=== PATIENT | male | born 1975 | race Caucasian/White ===

== ENCOUNTER 2016-11-02 21:29 | Inpatient (IN) | payer OTHER ==
--- NOTE | ~2016-11-02 | DS ---
Unit #: [id number] #: [id number] Patient: MERLYN LARA [id number] [facility] [address] [place] [address] [id number] I MR#: [id number] NAME: MERLYN LARA. ROOM: P183 Age: 41 Sex: M Admission Date: 11/02/2016 : 1975 Discharge Date: 11/07/2016 Attending Physician: Tanmay Ferguson M.D. Primary Care Physician: Primary Care Physician No DISCHARGE SUMMARY IDENTIFYING DATA Mr. Lara is a 41-year-old single white male, who is known to us from previous encounter and was self-referred to the hospital. DISCHARGE DIAGNOSES Psychiatric: Opioid dependence, moderate and acute withdrawals; opioid-induced mood disorder. Medical: History of withdrawal seizures and hepatitis C. Stressors: Moderate psychosocial stressors. HISTORY OF PRESENT ILLNESS Please see initial psychiatric evaluation for details. PAST PSYCHIATRIC HISTORY Please see initial psychiatric evaluation for details. PAST MEDICAL HISTORY Please see initial psychiatric evaluation for details. HOSPITAL COURSE The patient was admitted to the adult chemical dependency unit at [facility] [place] and was oriented to the hospital environment. Routine p.r.n. medications were initiated and he was started on opioid detox protocol and was closely monitored. He was taking medications regularly and was tolerating them fairly well and was able to show a decent and therapeutic response and was willing to continue treatment on an outpatient basis. DISCHARGE MEDICATIONS None. DISCHARGE CONDITION Stable. PROGNOSIS Fair. Dictated by... Marcia Kelley/claudettel TD: 12/10/2016 23:22 JOB #: [id number] Unit #: [id number] #: [id number] Patient: MERLYN LARA DISCHARGE SUMMARY Page 1 of 1 X Tanmay Ferguson MD X DISCHARGE SUMMARY
--- NOTE | ~2016-11-02 | HP ---
Unit #: [id number] #: [id number] Patient: JUNIOR LARA [id number] [place] [address] [id number] MR#: [id number] NAME: JUNIOR LARA. ROOM: P183 Age: 41 Sex: M Admission Date: 11/02/2016 : 1975 Attending Physician: Tanmay Ferguson M.D. Admitting Physician: Tanmay Ferguson M.D. Primary Care Physician: Primary Care Physician No HISTORY AND PHYSICAL HISTORY OF PRESENT ILLNESS Junior is a 41 year old admitted to [facility] because of his continued drug use. He shoots heroin. PAST MEDICAL HISTORY 1. Long history of polysubstance abuse to include IV heroin. 2. Hepatitis C. 3. History of withdrawal seizures. PAST SURGICAL HISTORY Fractured right foot with ORIF. ALLERGIES No known drug allergies. SOCIAL HISTORY Smokes one pack per day. Drinks alcohol on occasion and admits to a long history of poly illicit substance abuse to include IV heroin and methamphetamine. REVIEW OF SYSTEMS CONSTITUTIONAL: No fever or chills. HEENT: Denies any sore throat, ear pain or runny nose. CARDIOVASCULAR: Denies chest pain, irregular heart rhythm or palpitations. CHEST: Denies shortness of breath or cough. No hemoptysis. GASTROINTESTINAL: Denies nausea, vomiting, diarrhea or chronic constipation. ENDOCRINE: Denies history of increased thirst or urination. No recent significant weight loss or gain. GENITOURINARY: Denies dysuria, frequency, or hematuria. SKIN: Denies any rashes. HEMATOLOGIC: Denies history of increased bleeding or bruising. MUSCULOSKELETAL: Denies any hot, swollen joints. No generalized muscle pain. NEUROLOGIC: Denies problems with vision or speech. No frequent, severe headaches. No numbness, tingling or weakness in any extremities. Denies loss of bladder or bowel control. CURRENT MEDICATIONS Detox protocol Unit #: [id number] #: [id number] Patient: JUNIOR LARA PHYSICAL EXAMINATION GENERAL: Alert, well-nourished, in no apparent distress. VITAL SIGNS: Blood pressure 100/66, heart rate 60, respirations 16, temperature 98.6. WEIGHT: 160 pounds. HEIGHT: 5'5". SKIN: Warm and dry without rash or lesion. HEENT: Normocephalic. TMs not viewed. Oral and nasal passages clear. Conjunctivae clear. Pupils equal, round and reactive to light and accommodation. Extraocular movements intact. NECK: Supple without lymphadenopathy or thyromegaly. HEART: Regular rate and rhythm without murmur. LUNGS: Clear. ABDOMEN: Soft, nontender. : Not done. EXTREMITIES: No evidence of cyanosis, clubbing or edema. Moves all extremities without focal deficit. NEUROLOGICAL: Grossly within normal limits. Cranial Nerves: II: Visual no are intact. III, IV AND : Extraocular movements are intact. Pupils are equal, round and reactive to light. V: Facial sensation is grossly normal. VII: Facial movements and expression are normal. VIII: Auditory acuity grossly intact. IX, X: Uvula is midline. Phonation is normal. XI: Patient shrugs shoulders and turns head normally. XII: Tongue protrudes in the midline. Sensory and Motor Function: Sensory and motor sensation is grossly normal. Motor: moves all extremities well. Coordination: Gait is normal. Deep Tendon Reflexes: Intact. IMPRESSION Psychiatric admission RECOMMENDATIONS PSYCHIATRIC: Per psychiatrist. MEDICAL: I see no contraindications to participating in facility's activities. MEDICAL PROGNOSIS Good. MEDICAL CONDITION Stable. Dictated by... Trudy Andujar PKarinAKarin-Darlin. for Marcia Brizuela/josé miguel TD: 11/04/2016 03:58 JOB #: [id number] Unit #: [id number] #: [id number] Patient: JUNIOR LARA HISTORY AND PHYSICAL X Trudy Andujar X HISTORY AND PHYSICAL
--- NOTE | ~2016-11-02 | PN ---
Unit #: [id number] #: [id number] Patient: MERLYN LARA [id number] [facility] [address] [place] [address] [id number] I MR#: [id number] NAME: MERLYN LARA. ROOM: P183 Age: 41 Sex: M Admission Date: 11/02/2016 : 1975 Attending Physician: Tanmay Ferguson M.D. Admitting Physician: Tanmay Ferguson M.D. Primary Care Physician: Primary Care Physician Belén HINOJOSA PROGRESS NOTES DATE OF SERVICE: 11/07/2016 SUBJECTIVE Mr. Lara is a 41-year-old white male, who was seen today and chart was reviewed, and case was discussed with the staff. He has been anxious, withdrawn, and rather seclusive to himself. Meanwhile, he has been cooperative with treatment recommendation and has been taking the medications and tolerating them fairly well with no reported side effects. MENTAL STATUS EXAMINATION Young white male, who was casually dressed with fair personal hygiene, appears to be in no acute distress or discomfort. He was awake and alert on interaction with intact orientation. His mood was anxious with a congruent affect. He denies any suicidal or homicidal ideations. His insight and judgment remain slightly impaired. TREATMENT PLAN 1. We will continue him on his current medications and treatment protocol. We will monitor his response to the medications and make further adjustments as needed. 2. We will continue to follow up. Dictated by... Marcia Kelley/nona TD: 11/07/2016 09:17 JOB #: [id number] [facility] PROGRESS NOTES X Tanmay Ferguson MD PROGRESS NOTE
--- NOTE | ~2016-11-02 | PN ---
Unit #: [id number] #: [id number] Patient: MERLYN LARA [id number] [facility] [address] [place] [address] [id number] I MR#: [id number] NAME: MERLYN LARA. ROOM: P183 Age: 41 Sex: M Admission Date: 11/02/2016 : 1975 Attending Physician: Tanmay Ferguson M.D. Admitting Physician: Tanmay Ferguson M.D. Primary Care Physician: Primary Care Physician Belén MENSAH NOTES DATE 11/05/2016 DISCUSSION Mr. Lara is a 41-year-old, white male with substance abuse and mood disorder who was seen today and chart was reviewed and case was discussed with the staff. He was seen to be anxious, withdrawn, depressed and seclusive to himself and reports not feeling much better. He has been compliant with the treatment recommendations and has been taking medications and tolerating them fairly well with no reported side effects. MENTAL STATUS EXAM Young white male who was casually dressed with fair personal hygiene, appears to be in distress and discomfort. He was awake and alert on interaction with intact orientation. His mood was anxious with congruent affect. He denies any suicidal or homicidal ideation. Also, denies any auditory or visual hallucinations. His insight and judgement remains slightly impaired. TREATMENT PLAN 1. We will continue him on his current medications and detox protocol. We will monitor his response to the medication and make further adjustments as needed. 2. We will continue to follow up. Dictated by... Marcia Kelley/josé miguel TD: 11/05/2016 21:58 JOB #: [id number] Unit #: [id number] #: [id number] Patient: MERLYN LARA MICAELA PROGRESS NOTES X Tanmay Ferguson MD PROGRESS NOTE
--- NOTE | ~2016-11-02 | PN ---
Unit #: [id number] #: [id number] Patient: MERLYN LARA [id number] [facility] [address] [place] [address] [id number] I MR#: [id number] NAME: MERLYN LARA. ROOM: P183 Age: 41 Sex: M Admission Date: 11/02/2016 : 1975 Attending Physician: Tanmay Ferguson M.D. Admitting Physician: Tanmay Ferguson M.D. Primary Care Physician: Primary Care Physician Belén MENSAH NOTES DATE OF SERVICE: 11/03/2016 SUBJECTIVE Mr. Lara is a 41-year-old white male, who was seen today and chart was reviewed and the case was discussed with the staff. He has been anxious, withdrawn, and rather seclusive to himself. Meanwhile, he has been cooperative with the treatment recommendations and has been taking the medications and tolerating them fairly well with no reported side effects. MENTAL STATUS EXAMINATION Young white male, who was casually dressed with fair personal hygiene, appears to be in no acute distress or discomfort. He was awake and alert on interaction with intact orientation. His mood was anxious with a congruent affect. He denies any suicidal or homicidal ideations. His insight and judgment remain slightly impaired. TREATMENT PLAN We will continue him on his current medications and treatment protocol. We will monitor his response to the medications and make further adjustments as needed. Dictated by... Marcia Kelley/claudettel TD: 11/05/2016 15:03 JOB #: [id number] [facility] PROGRESS NOTES X Tanmay Ferguson MD PROGRESS NOTE
--- NOTE | ~2016-11-02 | PN ---
Unit #: [id number] #: [id number] Patient: MERLYN LARA [id number] [facility] [address] [place] [address] [id number] I MR#: [id number] NAME: MERLYN LARA. ROOM: P183 Age: 41 Sex: M Admission Date: 11/02/2016 : 1975 Attending Physician: Tanmay Ferguson M.D. Admitting Physician: Tanmay Ferguson M.D. Primary Care Physician: Primary Care Physician Belén MENSAH NOTES DATE OF SERVICE 11/06/2016 DISCUSSION Mr. Lara is a 41-year-old white male with mood disorder and substance abuse who was seen today. Chart was reviewed and case was discussed with the staff. He was lying in his bed and did appear to be in distress and discomfort. He stated that he is feeling slightly better than yesterday. Meanwhile, she has been compliant with the treatment recommendations and has been taking the medications and tolerating them fairly well. MENTAL STATUS EXAMINATION Young white male who is casually dressed with fair personal hygiene, appears to be in no acute distress or discomfort. The patient was awake and alert on interaction with intact orientation. His mood is anxious with congruent affect. He denies any suicidal or homicidal ideations and also denies any auditory or visual hallucinations. His insight and judgment remain slightly impaired. TREATMENT PLAN 1. We will continue him on his current medications and treatment protocol. We will monitor his response to the medications and make further adjustments as needed. 2. We will continue to follow up. Dictated by... Marcia Kelley/zarina TD: 11/07/2016 09:40 JOB #: [id number] Unit #: [id number] #: [id number] Patient: MERLYN LARA MICAELA PROGRESS NOTES X Tanmay Ferguson MD PROGRESS NOTE
--- NOTE | ~2016-11-02 | PA ---
Unit #: [id number] #: [id number] Patient: MERLYN LARA [id number] [facility] [place] [address] [id number] MR#: [id number] NAME: MERLYN LARA. ROOM: P183 Age: 41 Sex: M Admission Date: 11/02/2016 : 1975 Date of Assessment: 11/03/2016 Attending Physician: Tanmay Ferguson M.D. Admitting Physician: Tanmay Ferguson M.D. Primary Care Physician: Primary Care Physician No PSYCHIATRIC ASSESSMENT DATE OF SERVICE 11/03/2016. IDENTIFYING DATA Mr. Betts is a 41-year-old single white male, who is a resident of [place], [place], and is known to us from previous encounter, was self-referred to the hospital. CHIEF COMPLAINT "I need to detox." HISTORY OF PRESENT ILLNESS Mr. Betts is a 41-year-old white male with history of opioid dependence, who is known to me from previous encounter, was self-referred to the hospital, stating that he needs to detox and that he has been abusing opioids, heroin, methamphetamine, cannabis, and Xanax, and has been using drugs and has been mixing them and is unemployed due to his current substance abuse issues and reports unstable housing, poor social support system, increasing depression, anxiety, irritability, restlessness, feelings of hopelessness and helplessness, though he denies any suicidal ideations or homicidal ideations. SUBSTANCE ABUSE HISTORY The patient reports extensive history of substance abuse including cannabis, opioids, methamphetamine, and benzodiazepines, and currently opioids has been his drug of choice, though he has been mixing drugs on a regular basis. PAST PSYCHIATRIC HISTORY The patient has had history of multiple inpatient psychiatric hospitalizations at [facility] and other facilities, and has been diagnosed and treated for opioid dependence and review of the medical records indicate that currently he is not active in any treatment program, is not seeing a psychiatrist, not taking any psychotropic medications. PAST MEDICAL HISTORY Significant for history of withdrawal seizures and hepatitis C. ALLERGIES No known medication allergies. PERSONAL AND SOCIAL HISTORY A 41-year-old white male, who reports that he is single, unemployed, and Unit #: [id number] #: [id number] Patient: MERLYN LARA essentially homeless and has poor social support system. MENTAL STATUS EXAMINATION Young white male who was casually dressed with fair personal hygiene, appears to be in no acute distress or discomfort. He was awake and alert on interaction with intact orientation to time, place, and person. His mood was anxious and depressed with a congruent affect. His speech was slow and goal directed. He denies any current suicidal or homicidal ideations, and also denies any auditory or visual hallucinations. His insight and judgment remain significantly impaired. DIAGNOSTIC IMPRESSION Psychiatric: Opioid dependence, moderate and acute withdrawals; benzodiazepine dependence, moderate; methamphetamine dependence, moderate. Medical: Hepatitis C and history of withdrawal seizures. Stressors: Moderate psychosocial stressors. TREATMENT PLAN 1. The patient has presented with history of substance abuse and mood disorder, and has been decompensating and will need inpatient hospitalization for detoxification, safety, and stabilization. We will start him back on his home medications. We will adjust the medications and monitor response. 2. Supportive therapy was provided to the patient. 3. Safe, structured, and nourishing environment will be provided. ESTIMATED LENGTH OF STAY 5 to 7 days. ABILITY TO HELP SELF Limited. WILLINGNESS TO HELP SELF The patient appears to be willing to help self. STRENGTHS 1. Communicative. 2. Cooperative. PROBLEMS 1. Chronic dysphoric symptoms. 2. Poor social support system. DISCHARGE CRITERIA This will be contingent upon the patient's ability to go through detox without having any significant withdrawal symptoms as well as his ability to stay safe to himself, particularly after discharge from the hospital. Dictated by... Marcia Kelley/nona TD: 11/03/2016 07:51 JOB #: [id number] Unit #: [id number] #: [id number] Patient: MERLYN LARA PSYCHIATRIC ASSESSMENT X Tanmay Ferguson MD PSYCHIATRIC ASSESSMENT
[2016-11-03 09:35] LABS: BASOPHIL% 0.7 % (0-2.5); DIFF IND YES; EOSINOPHIL# 0.1 X10e3 (0-0.7); EOSINOPHIL% 3.4 % (0.0-7.0); HEMATOCRIT 39.5 % (38.0-50.0); LYMPHOCYTE# 2.5 X10e3 (1.0-3.5); LYMPHOCYTE% 63.5 % (17.0-45.0); MEAN CELL VOLUME 83.2 FL (83-96); MEAN CORPUSCULAR HEMOGLOBIN 27.4 PG (28-34); MEAN CORPUSCULAR HGB CONC 32.9 g/dL (30-36); MEAN PLATELET VOLUME 8.1 FL (6.5-11.5); MONOCYTE# 0.6 X10e3 (0-1.0); MONOCYTE% 14.1 % (3.0-12.0); NEUTROPHIL# 0.7 X10e3 (1.5-7.1); NEUTROPHIL% 18.3 % (40-75); PLATELET COUNT 236 X10e3 (140-420); RED BLOOD COUNT 4.75 X10e (3.90-5.60); RED CELL DISTRIBUTION WIDTH 13.7 % (11.0-15.5)
[2016-11-03 09:48] LABS: ALBUMIN SERUM 3.5 g/dL (3.5-5.0); ALKALINE PHOSPHATASE 86 U/L (32-92); ALT (SGPT) 28 U/L (10-40); AST (SGOT) 27 U/L (10-42); BILIRUBIN,TOTAL 0.5 mg/dL (0.2-2.0); BLOOD UREA NITROGEN 14 mg/dL (9-23); CALCIUM SERUM 8.8 mg/dL (8.4-10.2); CARBON DIOXIDE 30 mmol/L (22-31); CHLORIDE 103 mmol/L (100-111); CREATININE SERUM 0.7 mg/dL (0.6-1.4); GLOM FILT RATE Estimated ABOVE60 mL/min (>60); GLUCOSE FASTING 99 mg/dL (70-110); POTASSIUM 4.3 mmol/L (3.5-5.1); SODIUM 138 mmol/L (135-145)
[2016-11-03 09:49] LABS: THYROID STIMULATING HORMONE 0.49 uIU/ml (0.34-5.60)
[2016-11-03 09:58] LABS: FREE THYROXIN (T4) 0.79 ng/dL (0.58-1.64)
[2016-11-03 10:06] LABS: PLATELET ESTIMATE NORMAL (NORMAL)
[2016-11-03 10:07] LABS: RBC NORMAL YES
[2016-11-05 12:42] LABS: URINE APPEARANCE CLEAR; URINE BILIRUBIN NEG (NEG); URINE BLOOD NEG (NEG); URINE COLOR YELLOW; URINE GLUCOSE NEG (NEG); URINE KETONE NEG (NEG); URINE LEUKOCYTE ESTERASE NEG (NEG); URINE NITRATE NEG (NEG); URINE PROTEIN NEG (NEG); URINE SPECIFIC GRAVITY 1.017 (1.003-1.035)
[2016-11-05 13:04] LABS: AMPHETAMINE POS (NEG); BARBITURATES NEG (NEG); BENZODIAZEPINES POS (NEG); COCAINE NEG (NEG); MARIJUANA POS (NEG); OPIATES NEG (NEG); TRICYCLIC ANTIDEPRESSANTS POS (NEG); U METHADONE NEG (NEG)
== END 2016-11-07 11:15 | disposition home or self-care (01) | DRG 897 ==
LOC: P1E 21:29 → POF 11-04 12:47 → P1E 11-04 12:54
PROVIDERS: Psychiatry & Neurology Psychiatry
PROC: HZ2ZZZZ Detoxification Services for Substance Abuse Treatment (ICD-10-PCS; principal; 2016-11-02)
DX: F11.23 Opioid dependence with withdrawal (principal); F13.20 Sedative, hypnotic or anxiolytic dependence, uncomplicated; F15.20 Other stimulant dependence, uncomplicated; F17.210 Nicotine dependence, cigarettes, uncomplicated
CPT/HCPCS: 80053; 80307; 81003; 84439; 84443; 85025; 86592